=== PATIENT | female | born 1955 | race Caucasian/White ===

== ENCOUNTER 2020-04-10 06:00 | Emergency (ER) | payer OTHER ==
[2020-04-10 06:08] VITALS: BP 154/81; PULSE 98; RESP 18; TEMP 98
[2020-04-10] MEDS ORDERED: IBUPROFEN 600 MG TAB PO STA ×2 (06:47→06:48)
--- NOTE | 2020-04-10 06:53 | ED ---
Upper Extremity HPI - General Chief Complaint: Extremity Injury, Upper Stated Complaint: [facility] shoulder injury Time Seen by Provider: 04/10/20 06:09 Source: patient, RN notes reviewed Mode of arrival: ambulatory Limitations: no limitations - History of Present Illness Initial Comments: This a 65-year-old female presents emergency Department chief complaint of right shoulder pain. 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 Patient states that it was sore at first but states has worsened. Patient states she has pain with certain range of motion. No paresthesias she is [id number]. Denies any prior fractures or injuries noted to the right shoulder - Related Data Allergies Allergy/AdvReac Type Severity Reaction Status Date / Time codeine Allergy Rash/Hives Verified 04/10/20 06:09 ether Allergy Anaphylaxis Verified 04/10/20 06:09 Review of Systems ROS Statement: Those systems with pertinent positive or pertinent negative responses have been documented in the HPI. ROS Other: All systems not noted in ROS Statement are negative. Past Medical History Past Medical History: GERD/Reflux, Thyroid Disorder Additional Past Medical History / Comment(s): Gastroparesis, History of Any Multi-Drug Resistant Organisms: None Reported Past Surgical History: Orthopedic Surgery Past Psychological History: No Psychological Hx Reported Smoking Status: Former smoker Past Alcohol Use History: None Reported Past Drug Use History: None Reported General Exam Limitations: no limitations General appearance: alert, in no apparent distress Head exam: Present: atraumatic, normocephalic, normal inspection Neck exam: Present: normal inspection, full ROM. Absent: tenderness, meningismus, lymphadenopathy Respiratory exam: Present: normal lung sounds bilaterally. Absent: respiratory distress, wheezes, rales, rhonchi, stridor Cardiovascular Exam: Present: regular rate, normal rhythm, normal heart sounds. Absent: systolic murmur, diastolic murmur, rubs, gallop, clicks Extremities exam: Present: other (Right shoulder is tenderness over the lateral portion, no obvious deformity no ecchymosis or abrasions noted. Patient does have pain with range of motion over her shoulder height. Patient does have mild pain or) Course Vital Signs 04/10/20 06:05 Temperature 98 F Pulse Rate 98 Respiratory 18 Rate Blood Pressure 154/81 O2 Sat by Pulse 96 Oximetry Medical Decision Making - Medical Decision Making X-rays were reviewed by me and radiologist no acute findings. Patient has mild degenerative changes. Patient has a right shoulder contusion will continue rest ice and Tylenol Motrin return for any worsening symptoms. Disposition Clinical Impression: Contusion of right shoulder Disposition: HOME SELF-CARE Condition: Stable Instructions (If sedation given, give patient instructions): Contusion in Adults (ED) Additional Instructions: Please return to the Emergency Department if symptoms worsen or any other concerns. Is patient prescribed a controlled substance at d/c from ED?: No Referrals: None,Stated [Primary Care Provider] - 1-2 days Time of Disposition: 07:09
--- NOTE | 2020-04-10 06:59 | XR ---
EXAM: XR Right Shoulder Complete, 2 or More Views CLINICAL HISTORY: ITS.REASON XR Reason: pain TECHNIQUE: Two or more views of the right shoulder. COMPARISON: No relevant prior studies available. FINDINGS/IMPRESSION: No acute fracture or dislocation. The glenohumeral joint space is preserved. The greater tuberosity is intact. Diffuse osseous demineralization. Moderate degenerative changes of the acromioclavicular joint.
== END 2020-04-10 07:15 | disposition home or self-care (01) ==
LOC: EC 06:00
DX: S40.011A Contusion of right shoulder, initial encounter (principal); M19.011 Primary osteoarthritis, right shoulder; Z87.891 Personal history of nicotine dependence; Z88.5 Allergy status to narcotic agent; Z88.8 Allergy status to other drugs, medicaments and biological substances; Z53.8 Procedure and treatment not carried out for other reasons; W22.8XXA Striking against or struck by other objects, initial encounter; Y93.01 Activity, walking, marching and hiking; Y92.239 Unspecified place in hospital as the place of occurrence of the external cause; Y99.0 Civilian activity done for income or pay
CPT/HCPCS: 99283

== ENCOUNTER 2020-04-25 16:33 | Emergency (ER) | payer MEDICARE, OTHER ==
[2020-04-25 17:02] VITALS: TEMP 98.3
--- NOTE | 2020-04-25 17:36 | ED ---
General Adult HPI - General Chief complaint: Fall Stated complaint: fall/head and shoulder pain Time Seen by Provider: 04/25/20 17:21 Source: patient Mode of arrival: ambulatory Limitations: no limitations - History of Present Illness Initial comments: Dictation was produced using [employer] dictation software. please excuse any grammatical, word or spelling errors. This patient was cared for during a federal and state declared state of emergency secondary to Covid 19 Chief Complaint: 65-year-old female with past nuchal history of GERD and thyroid disease presents with fall. History of Present Illness: 65-year-old female she presents after fall. Patient states she was in the parking lot of a [employer] treat with she tripped. Patient states she fell landing on her left side. She struck her left face and left shoulder and left knee. Patient states that her pain wasn't that bad yesterday however, we can today sugars are acutely worsened initially walked. She is able to left arm about. She denies any loss of consciousness after the fall. Patient does not take any blood thinners. Denies any neck or back. No hip pain. The ROS documented in this emergency department record has been reviewed and confirmed by me. Those systems with pertinent positive or negative responses have been documented in the HPI. All other systems are other negative and/or noncontributory. PHYSICAL EXAM: General Impression: Alert and oriented x3, not in acute distress HEENT: Ecchymoses to the left periorbital area, extra-ocular movements intact, pupils equal and reactive to light bilaterally, mucous membranes moist. Cardiovascular: Heart regular rate and rhythm Chest: Able to complete full sentences, no retractions, no tachypnea Abdomen: abdomen soft, non-tender, non-distended, no organomegaly Musculoskeletal: Pulses present and equal in all extremities, no peripheral edema, tenderness or palpation of the left shoulder, tenderness or elevation of the left knee Motor: no focal deficits noted Neurological: CN II-XII grossly intact, no focal motor or sensory deficits noted Skin: Intact with no visualized rashes Psych: Normal affect and mood ED course: 65-year-old female presents after fall. Patient reports mechanical fall. As upon arrival are within acceptable limits. Patient does have ecchymoses around the left eye. EKG is unremarkable. Computed tomography scan of the head and C-spine is unremarkable. Face CT shows tiny left maxillary inferior wall fracture with some bleeding in the left maxillary sinus. X-ray of the shoulder and knee unremarkable. Patient has no signs of hemotympanum, negative Gunderson sign and no raccoon's eyes. Patient stable medical condition. Patient discharged. She is given referral to ENT for outpatient management of patient fracture. EKG interpretation: Ventricular rate 70, normal sinus rhythm, SC interval 180, QRS 78, QTc 440. No SC prolongation, no QTC prolongation, no ST or T-wave changes noted. No old EKG for comparison. There is a nonspecific T-wave inversion in lead 3.. Overall, this EKG is unremarkable - Related Data Home Medications Medication Instructions Recorded Confirmed Alendronate Sodium [Fosamax] 70 mg PO TH 04/10/20 04/10/20 Ascorbic Acid [Vitamin C] 500 mg PO DAILY 04/10/20 04/10/20 Biotin 5 mg PO DAILY 04/10/20 04/10/20 Levothyroxine Sodium [Synthroid] 125 mcg PO DAILY 04/10/20 04/10/20 Pantoprazole Sodium [Protonix] 40 mg PO DAILY 04/10/20 04/10/20 Vitamin B Complex 1 cap PO DAILY 04/10/20 04/10/20 Allergies Allergy/AdvReac Type Severity Reaction Status Date / Time codeine Allergy Rash/Hives Verified 04/25/20 17:02 ether Allergy Anaphylaxis Verified 04/25/20 17:02 Review of Systems ROS Statement: Those systems with pertinent positive or pertinent negative responses have been documented in the HPI. ROS Other: All systems not noted in ROS Statement are negative. Past Medical History Past Medical History: GERD/Reflux, Thyroid Disorder Additional Past Medical History / Comment(s): Gastroparesis, History of Any Multi-Drug Resistant Organisms: None Reported Past Surgical History: Orthopedic Surgery Additional Past Surgical History / Comment(s): lt ankle Past Psychological History: No Psychological Hx Reported Smoking Status: Former smoker Past Alcohol Use History: None Reported Past Drug Use History: None Reported General Exam Limitations: no limitations Course Vital Signs 04/25/20 04/25/20 16:59 18:32 Temperature 98.3 F 98.3 F Pulse Rate 78 74 Respiratory 20 18 Rate Blood Pressure 155/78 118/67 O2 Sat by Pulse 99 96 Oximetry Disposition Clinical Impression: Facial bone fracture, Knee contusion, Shoulder contusion Disposition: HOME SELF-CARE Condition: Good Instructions (If sedation given, give patient instructions): Fall Prevention for Older Adults (ED) Is patient prescribed a controlled substance at d/c from ED?: No Referrals: Nonstaff,Physician [Primary Care Provider] - 1-2 days Time of Disposition: 19:50
[2020-04-25 18:33] VITALS: BP 118/67; PULSE 74; RESP 18
--- NOTE | 2020-04-25 19:10 | CT ---
EXAMINATION TYPE: CT brain cspine wo con DATE OF EXAM: 04/25/2020 COMPARISON: None HISTORY: Fall with facial lacerations CT DLP: 1008.3 mGycm Automated exposure control for dose reduction was used. TECHNIQUE: CT scan of the head and cervical spine are performed without contrast. FINDINGS: There is no acute intracranial hemorrhage, mass effect, or midline shift identified. The ventricles and sulci are within normal limits in size. No extra-axial fluid collection. There is vo lume loss. Patchy periventricular white matter hypodensities likely sequela of chronic microvascular ischemic change. The globes are grossly symmetric. The visualized sinuses and mastoid air cell are cl ear. Cervical spine is visualized in its entirety from C1 through upper thoracic levels and demonstrates s atisfactory alignment without evidence of acute fracture or dislocation. Prevertebral soft tissue ap pears within normal limits. The C1-C2 articulation is maintained. There are multilevel degenerative changes contributing to varying degrees of neural foramina and canal stenosis. No high-grade canal st enosis. IMPRESSION: 1. There is no acute fracture or dislocation evident in the cervical spine. 2. No acute intracranial hemorrhage, mass effect, or midline shift is seen.
--- NOTE | 2020-04-25 19:34 | CT ---
EXAMINATION TYPE: CT facial bones wo con DATE OF EXAM: 04/25/2020 COMPARISON: None HISTORY: Fall with facial lacerations CT DLP: 1008.3 mGycm Automated exposure control for dose reduction was used. TECHNIQUE: CT scan of the facial bones is performed without contrast, axial images are obtained, jesusita nal reformatted images are also reviewed. FINDINGS: There is mild subcutaneous edema and abrasion of the left cheek. In this region is a minima lly displaced fracture of the lateral inferior wall of the left maxillary sinus (207:29, 205:36). The paranasal sinuses demonstrate air-fluid level of the left maxillary sinus. There is mucosal thickeni ng obstructing the left ostiomeatal complex. No other facial bone fractures are seen. Mandibular dental hardware. Maxillary denture. IMPRESSION: In the region of the left cheek abrasion. There is a thin minimally displaced fracture of the lateral inferior wall of the left maxillary sinus. Air-fluid level within the left maxillary sin us may represent mucosal thickening versus internal blood product. Dr. Chiquis Veliz spoke with Dr. Chris Fontanez via the phone on 04/25/2020 at 7:35 PM to discuss fi ndings, and results were nausea.
--- NOTE | 2020-04-25 19:40 | XR ---
EXAMINATION TYPE: XR knee 4V LT DATE OF EXAM: 04/25/2020 CLINICAL HISTORY: Pain from fall TECHNIQUE: AP, oblique, lateral, and sunrise views of the left knee are obtained. COMPARISON: None. FINDINGS: There is no acute fracture/dislocation evident in left knee. The tri-compartment joint sp aces appear within normal limits. The overlying soft tissue appears unremarkable. Decreased osseous mineralization. IMPRESSION: There is no acute fracture or dislocation in the left knee.
--- NOTE | 2020-04-25 19:42 | XR ---
EXAMINATION TYPE: XR shoulder complete LT DATE OF EXAM: 04/25/2020 CLINICAL HISTORY: Pain from fall TECHNIQUE: Three views of the left shoulder are obtained. COMPARISON: None. FINDINGS: There is no acute fracture/dislocation evident in the left shoulder. Calcific density in the superior aspect of the glenohumeral joint with no clear donor site and appears well ossified and nonacute. The acromioclavicular and glenohumeral joint spaces appear within normal limits. The visua lized ribs are intact and unremarkable. IMPRESSION: There is no acute fracture or dislocation in the left shoulder.
== END 2020-04-25 20:00 | disposition home or self-care (01) ==
LOC: EC 16:33
DX: S02.609A Fracture of mandible, unspecified, initial encounter for closed fracture (principal); S80.02XA Contusion of left knee, initial encounter; S40.012A Contusion of left shoulder, initial encounter; K21.9 Gastro-esophageal reflux disease without esophagitis; E07.9 Disorder of thyroid, unspecified; Z79.890 Hormone replacement therapy; Z79.899 Other long term (current) drug therapy; Z88.5 Allergy status to narcotic agent; Z91.048 Other nonmedicinal substance allergy status; Z87.891 Personal history of nicotine dependence; W01.198A Fall on same level from slipping, tripping and stumbling with subsequent striking against other object, initial encounter; Y92.481 Parking lot as the place of occurrence of the external cause
CPT/HCPCS: 70450; 70486; 72125; 93005; 99284